=== PATIENT | male | born 1985 | race Caucasian/White ===

== ENCOUNTER 2021-05-28 11:47 | Emergency (ER) | payer SELFPAY ==
[~2021-05-28] VITALS: Ht 165.1 cm; Wt 62.8 kg
[2021-05-28 11:51] VITALS: BP 157/103
== END 2021-05-28 14:23 | disposition left against medical advice (07) ==
LOC: ER 11:47
DX: Z53.21 Procedure and treatment not carried out due to patient leaving prior to being seen by health care provider (principal)